=== PATIENT | female | born 1995 | race American Indian/Alaskan Native ===

== ENCOUNTER 2016-09-14 13:26 | Emergency (ER) | payer SELFPAY ==
[2016-09-14 13:39] VITALS: BP 113/66
--- NOTE | 2016-09-14 14:44 | Emergency Department Report ---
HPI - General Chief Complaint: Sore Throat Time Seen by Provider: 09/14/16 13:54 - HPI HPI: Patient reports that she has strep throat and migraine headache pain for 2-3 days. She said her boyfriend is also here with pain symptoms and she feels that she has strep. Reports pain to head and throat at 9 out of 10 and aching. Denies any nausea or vomiting. She reports that she did not take her temperatures documented fever. No tipp-nhx-tsyoste medication taken. Denies any drooling or shortness of breath. Denies any chest pain or back pain. Denies any neck pain or stiffness. Denies coughing.. ED Past Medical Hx - Past Medical History Previous Medical History?: Yes Hx Hypertension: No Hx Heart Attack/AMI: No Hx Congestive Heart Failure: No Hx Diabetes: No Hx Deep Vein Thrombosis: No Hx Renal Disease: No Hx Sickle Cell Disease: No Hx Seizures: No Hx Asthma: No Hx COPD: No Hx HIV: No Additional medical history: vaginal delivery 10-01-2015 - Surgical History Past Surgical History?: No - Family History Family history: hypertension - Social History Smoking Status: Current Some Day Smoker Substance Use Type: Non Opiate Pain - Medications Home Medications: Home Medications Medication Instructions Recorded Confirmed Last Taken Type Ondansetron [Zofran Odt] 4 mg PO TID #14 tab.rapdis 04/12/15 Unknown Rx Docusate Sodium [Colace] 100 mg PO BID PRN #60 capsule 10/03/15 Unknown Rx Ferrous Sulfate [Feosol 325 MG tab] 325 mg PO TID #90 tablet 10/03/15 Unknown Rx Vit-Fe Fumar-FA [ 1 each PO QDAY #30 tablet 10/03/15 Unknown Rx Vitamin] oxyCODONE /ACETAMINOPHEN [Percocet 1 tab PO Q6H PRN #20 tablet 10/03/15 Unknown Rx 5/325 mg] Ibuprofen [Motrin 600 MG tab] 600 mg PO Q6H PRN #15 tablet 09/14/16 Unknown Rx Penicillin Vk [Veetids TAB] 500 mg PO TID #60 tablet 09/14/16 Unknown Rx ED Review of Systems ROS: Stated complaint: SORE THROAT/MIGRAINE HEADACHE Other details as noted in HPI Comment: All other systems reviewed and negative Constitutional: chills. denies: weakness Eyes: denies: eye discharge ENT: throat pain. denies: ear pain, dental pain, congestion Respiratory: no symptoms reported Cardiovascular: denies: chest pain, palpitations, edema, syncope Gastrointestinal: denies: abdominal pain, nausea, vomiting Genitourinary: denies: urgency, dysuria, frequency, hematuria, discharge Musculoskeletal: denies: back pain, joint swelling, arthralgia, myalgia Skin: denies: rash Neurological: headache. denies: weakness, numbness, paresthesias, confusion, abnormal gait, vertigo Physical Exam - Physical Exam Vital Signs: Vital Signs 09/14/16 13:33 Temperature 99.2 F Pulse Rate 106 H Respiratory 20 Rate Blood Pressure 113/66 O2 Sat by Pulse 99 Oximetry Vital Signs 09/14/16 09/14/16 13:33 15:02 Temperature 99.2 F Pulse Rate 106 H Respiratory 20 18 Rate Blood Pressure 113/66 O2 Sat by Pulse 99 Oximetry Vital Signs 09/14/16 09/14/16 09/14/16 13:33 15:02 16:12 Temperature 99.2 F Pulse Rate 106 H 88 Respiratory 20 18 Rate Blood Pressure 113/66 O2 Sat by Pulse 99 Oximetry General: 21-year-old female well-nourished well-developed in no acute distress. Physical Exam: Head: Normocephalic atraumatic Mouth: Moist, Positive pharyngeal exudate and erythema. Uvula is midline and oral airway is patent. No facial swelling. No peritonsillar abscesses. Nose: Nl Mucosa Maxillary and frontal sinuses nontender to palpate. No drooling and time is normal Neck: Supple, no C-spine tenderness, no tracheal deviation. Nontender to palpate. Positive cervical adenopathy Ears: Bilateral TMs congested without erythema. Bilateral EAC without any redness swelling or drainage. Bilateral otitis nontender to palpate Abdomen: Soft, nontender to palpate in all quadrants, normal bowel sounds in all quadrant and negative CVA tenderness bilaterally. Neurological: GCS of 15, alert and oriented 3. Speech is clear and fluid. Normal gait. No motor or sensory deficit. Normal reflexes. No facial drooping. No pronator drift and negative Romberg. Eyes: Bilateral pupils equal and reactive to light, bilateral EOM intact. Bilateral sclera and conjunctiva without injection. Normal accommodation. No nystagmus Lungs: Clear to auscultate bilaterally no rhonchi wheezes or rales. Normal work of breathing extremity; No CCE. +2 pulses. No neurovascular compromise Cardiovascular: S1-S2, regular rate rhythm. No murmurs. Manual pulses at 88 Skin: clean Dry and intact no rash no lesions Psych: Normal mood and behavior ED Course Vital Signs 09/14/16 13:33 Temperature 99.2 F Pulse Rate 106 H Respiratory 20 Rate Blood Pressure 113/66 O2 Sat by Pulse 99 Oximetry Vital Signs 09/14/16 09/14/16 09/14/16 13:33 15:02 16:12 Temperature 99.2 F Pulse Rate 106 H 88 Respiratory 20 18 Rate Blood Pressure 113/66 O2 Sat by Pulse 99 Oximetry - Reevaluation(s) Reevaluation #1: 09/14/16 16:16 She received Motrin 800 mg when necessary emergency room and she will be treated with penicillin for strep rather than Bicillin injection. ED Medical Decision Making - Medical Decision Making Course: Significant appropriate in sore throat and chills. Based on Physical exam, patient has strep pharyngitis. She has fever, chills, enlarged lymph nodes, headache and erythema with exudate to the oropharynx. Given Motrin 800 mg by mouth emergency room for sore throat and fever. I discussed the patient that she has strep throat and gave her the option to be treated with Bicillin injection 1 in the ED for penicillin VK orally and she Was treated with Penicillin VK. She does understand the discharge diagnosis and treatment plan and patient discharged home with prescription for penicillin VK and Motrin. Critical care attestation.: If time is entered above; I have spent that time in minutes in the direct care of this critically ill patient, excluding procedure time. ED Disposition Clinical Impression: Exudative pharyngitis, Fever and chills Headache Qualifiers: Headache type: unspecified Headache chronicity pattern: acute headache Intractability: not intractable Qualified Code(s): R51 - Headache Disposition: DC-01 TO HOME OR SELFCARE Is pt being admited?: No Does the pt Need Aspirin: No Condition: Stable Instructions: Acute Headache (ED), Fever in Adults (ED), Strep Throat (ED) Additional Instructions: Take antibiotic as prescribed take Motrin as prescribed for fever and sore throat. Follow-up with your primary care physician in 4 days and if he do not have when he can follow-up at [facility]. Prescriptions: Ibuprofen [Motrin 600 MG tab] 600 mg PO Q6H PRN #15 tablet PRN Reason: FEVER AND SORE THROAT Penicillin Vk [Veetids TAB] 500 mg PO TID #60 tablet Referrals: PRIMARY CARE, [Primary Care Provider] - 09/18/[address] [facility] [Outside] - 09/18/16 Forms: Accompanied Note, Work/School Release Form(ED)
[2016-09-14] MEDS ORDERED: MOTRIN PO ONE (14:51)
== END 2016-09-14 16:36 | disposition home or self-care (01) ==
LOC: ED 13:26
DX: J02.9 Acute pharyngitis, unspecified (principal); R51 Headache; Z72.0 Tobacco use
CPT/HCPCS: 99282

== ENCOUNTER 2018-05-24 13:53 | Emergency (ER) | payer BC, MEDICAID ==
[2018-05-24 15:29] VITALS: BP 100/58
--- NOTE | 2018-05-24 15:38 | Emergency Department Report ---
Chief Complaint: Urogenital-Female Stated Complaint: STD CHECK Time Seen by Provider: 05/24/18 15:27 - HPI History of Present Illness: This is a 23 y.o female that presents with pelvic pain and vaginal bleeding. Patient is unsure of when symptoms started. LMP 05/02/18, A1. - Exam Vital Signs: Vital Signs 05/24/18 15:28 Temperature 99.0 F Pulse Rate 85 Respiratory 16 Rate Blood Pressure 100/58 [Right] O2 Sat by Pulse 100 Oximetry MSE screening note: Focused history and physical exam performed. Due to findings the following was ordered: labs Fast track for further evaluation ED Disposition for MSE Condition: Stable
[2018-05-24 16:07] LABS: Basophils % (Auto) 0.6 % (0.0-1.8); Eosinophils % (Auto) 0.3 % (0.0-4.3); Hematocrit 40.4 % (30.3-42.9); Hemoglobin 14.1 gm/dl (10.1-14.3); Lymphocytes % (Auto) 34.4 % (13.4-35.0); Mean Corpuscular HGB Conc 35 % (30-34); Mean Corpuscular Volume 93 fl (79-97); Monocytes # (Auto) 0.4 K/mm3 (0.0-0.8); Monocytes % (Auto) 6.4 % (0.0-7.3); Platelet Count 268 K/mm3 (140-440); Red Blood Count 4.35 M/mm3 (3.65-5.03)
[2018-05-24 16:40] LABS: Bacteria,Urine 4+ /HPF (Negative); Bilirubin,Urine NEG (Negative); Blood,Urine MOD (Negative); Color,Urine Amber (Yellow); Mucus,Urine 3+ /HPF; Protein,Urine <15 mg/dL mg/dL (Negative)
== END 2018-05-24 18:31 | disposition left against medical advice (07) ==
LOC: ED 13:53
DX: R10.2 Pelvic and perineal pain (principal); Z53.21 Procedure and treatment not carried out due to patient leaving prior to being seen by health care provider
CPT/HCPCS: 36415; 81001; 84703; 85025

== ENCOUNTER 2018-05-26 15:53 | Emergency (ER) | payer BC, MEDICAID ==
--- NOTE | 2018-05-26 16:07 | Emergency Department Report ---
Blank Doc - Documentation Documentation: This is a 23-year-old female that presents with STD check with pelvic pain. P atient denies any vaginal discharge. Stated has abnormal menstrual cycle after depo. This initial assessment/diagnostic orders/clinical plan/treatment(s) is/are subject to change based on patient's health status, clinical progression and re- assessment by fellow clinical providers in the ED. Further treatment and workup at subsequent clinical providers discretion. Patient/guardians urged not to elope from the ED as their condition may be serious if not clinically assessed and managed. Initial orders include: 1- Patient sent to [facility] for further evaluation and treatment 2- UA
[2018-05-26 16:49] LABS: Basophils % (Auto) 0.6 % (0.0-1.8); Eosinophils % (Auto) 0.6 % (0.0-4.3); Hematocrit 40.9 % (30.3-42.9); Hemoglobin 14.2 gm/dl (10.1-14.3); Lymphocytes % (Auto) 42.3 % (13.4-35.0); Mean Corpuscular HGB Conc 35 % (30-34); Mean Corpuscular Volume 93 fl (79-97); Monocytes # (Auto) 0.3 K/mm3 (0.0-0.8); Monocytes % (Auto) 6.3 % (0.0-7.3); Platelet Count 275 K/mm3 (140-440); Red Cell Distribution Width 12.9 % (13.2-15.2)
[2018-05-26 17:01] LABS: BUN/Creatinine Ratio 20; Blood Urea Nitrogen 14 mg/dL (7-17); Calcium 9.1 mg/dL (8.4-10.2); Hemolysis Index 2
[2018-05-26 17:31] LABS: Bacteria,Urine 3+ /HPF (Negative); Bilirubin,Urine NEG (Negative); Blood,Urine MOD (Negative); Color,Urine Amber (Yellow); Mucus,Urine 3+ /HPF
[2018-05-26] MEDS ORDERED: ZITHROMAX PO ONE (17:35)
[2018-05-26] MEDS ORDERED: ROCEPHIN IM ONE (17:35)
[2018-05-26] MEDS ORDERED: XYLOCAINE 1% MPF 5 mL INFILTRATI ONE (17:35)
[2018-05-26] MEDS ORDERED: MACROBID PO ONE (17:45)
--- NOTE | 2018-05-26 17:50 | Emergency Department Report ---
ED Female HPI - General Chief complaint: Abdominal Pain Stated complaint: STD CHECK/VAGINAL BLEEDING/ABD PAIN Time Seen by Provider: 05/26/18 16:05 Source: patient Mode of arrival: Ambulatory Limitations: No Limitations - History of Present Illness Initial comments: 23-year-old female withno significant past medical history presents complaining and pelvic pain and spotting in between her periods. Patient states that she recently reunited with her boyfriend who has penile discharge and dysuria. She also complains of frequent urination and discomfort with urination. She denies fever, nausea, vomiting, or flank pain. - Related Data Previous Rx's Medication Instructions Recorded Last Taken Type Ondansetron [Zofran Odt] 4 mg PO TID #14 tab.rapdis 04/12/15 Unknown Rx Docusate Sodium [Colace] 100 mg PO BID PRN #60 capsule 10/03/15 Unknown Rx Ferrous Sulfate [Feosol 325 MG tab] 325 mg PO TID #90 tablet 10/03/15 Unknown Rx Vit-Fe Fumar-FA [ 1 each PO QDAY #30 tablet 10/03/15 Unknown Rx Vitamin] oxyCODONE /ACETAMINOPHEN [Percocet 1 tab PO Q6H PRN #20 tablet 10/03/15 Unknown Rx 5/325 mg] Ibuprofen [Motrin 600 MG tab] 600 mg PO Q6H PRN #15 tablet 09/14/16 Unknown Rx Penicillin Vk [Veetids TAB] 500 mg PO TID #60 tablet 09/14/16 Unknown Rx Nitrofurantoin [place]/M-Cryst 100 mg PO Q12HR #10 capsule 05/26/18 Unknown Rx [Macrobid CAP] Allergies Allergy/AdvReac Type Severity Reaction Status Date / Time No Known Allergies Allergy Verified 05/26/18 15:55 ED Review of Systems ROS: Stated complaint: STD CHECK/VAGINAL BLEEDING/ABD PAIN Other details as noted in HPI Comment: All other systems reviewed and negative ED Past Medical Hx - Past Medical History Hx Hypertension: No Hx Heart Attack/AMI: No Hx Congestive Heart Failure: No Hx Diabetes: No Hx Deep Vein Thrombosis: No Hx Renal Disease: No Hx Sickle Cell Disease: No Hx Seizures: No Hx Asthma: No Hx COPD: No Hx HIV: No Additional medical history: vaginal delivery 10-01-2015 - Social History Smoking Status: Current Every Day Smoker Substance Use Type: Alcohol, Marijuana - Medications Home Medications: Home Medications Medication Instructions Recorded Confirmed Last Taken Type Ondansetron [Zofran Odt] 4 mg PO TID #14 tab.rapdis 04/12/15 Unknown Rx Docusate Sodium [Colace] 100 mg PO BID PRN #60 capsule 10/03/15 Unknown Rx Ferrous Sulfate [Feosol 325 MG tab] 325 mg PO TID #90 tablet 10/03/15 Unknown Rx Vit-Fe Fumar-FA [ 1 each PO QDAY #30 tablet 10/03/15 Unknown Rx Vitamin] oxyCODONE /ACETAMINOPHEN [Percocet 1 tab PO Q6H PRN #20 tablet 10/03/15 Unknown Rx 5/325 mg] Ibuprofen [Motrin 600 MG tab] 600 mg PO Q6H PRN #15 tablet 09/14/16 Unknown Rx Penicillin Vk [Veetids TAB] 500 mg PO TID #60 tablet 09/14/16 Unknown Rx Nitrofurantoin [place]/M-Cryst 100 mg PO Q12HR #10 capsule 05/26/18 Unknown Rx [Macrobid CAP] ED Physical Exam - General Limitations: No Limitations - Other Other exam information: General: No limitations, patient is alert in no acute distress Head exam: Atraumatic, normocephalic Eyes exam: Normal appearance ENT: Moist mucous membrane Neck exam: Normal inspection, full range of motion, no meningismus nontender Respiratory exam: Clear to auscultation bilateral, no wheezes, rales, crackles Cardiovascular: Normal rate and rhythm, normal heart sounds Abdomen: Soft, nondistended, and nontender, with normal bowel sounds, no rebound, or guarding : No external lesions, clear vaginal discharge. Minimal blood at the cervical os without cervical lesions. No CMT or adnexal tenderness. Extremity: Full range of motion normal inspection no deformity Back: Normal Inspection, full range of motion, no tenderness Neurologic: Alert, oriented x3, cranial nerves intact, no motor or sensory deficit Psychiatric: normal affect, normal mood Skin: Warm, dry, intact ED Course Vital Signs 05/26/18 05/26/18 16:05 17:27 Temperature 98.6 F 99.3 F Pulse Rate 88 72 Respiratory 16 18 Rate Blood Pressure 116/64 Blood Pressure 103/63 [Right] O2 Sat by Pulse 100 98 Oximetry ED Medical Decision Making - Lab Data Result diagrams: 05/26/18 16:37 05/26/18 16:37 Lab Results 05/26/18 05/26/18 05/26/18 Range/Units 16:11 16:37 16:37 WBC 4.8 (4.5-11.0) K/mm3 RBC 4.40 (3.65-5.03) M/mm3 Hgb 14.2 (10.1-14.3) gm/dl Hct 40.9 (30.3-42.9) % MCV 93 (79-97) fl MCH 32 (28-32) pg MCHC 35 H (30-34) % RDW 12.9 L (13.2-15.2) % Plt Count 275 (140-440) K/mm3 Lymph % (Auto) 42.3 H (13.4-35.0) % [place] % (Auto) 6.3 (0.0-7.3) % Eos % (Auto) 0.6 (0.0-4.3) % Baso % (Auto) 0.6 (0.0-1.8) % Lymph # 2.0 (1.2-5.4) K/mm3 [place] # 0.3 (0.0-0.8) K/mm3 Eos # 0.0 (0.0-0.4) K/mm3 Baso # 0.0 (0.0-0.1) K/mm3 Seg Neutrophils % 50.2 (40.0-70.0) % Seg Neutrophils # 2.4 (1.8-7.7) K/mm3 Sodium 142 (137-145) mmol/L Potassium 3.5 L (3.6-5.0) mmol/L Chloride 102.9 (98-107) mmol/L Carbon Dioxide 25 (22-30) mmol/L Anion Gap 18 mmol/L BUN 14 (7-17) mg/dL Creatinine 0.7 (0.7-1.2) mg/dL Estimated GFR > 60 ml/min BUN/Creatinine Ratio 20 % Glucose 87 (65-100) mg/dL Calcium 9.1 (8.4-10.2) mg/dL HCG, Qual Negative (Negative) Urine Color (Yellow) Urine Turbidity (Clear) Urine pH (5.0-7.0) Ur Specific [place] (1.003-1.030) Urine Protein (Negative) mg/dL Urine Glucose (UA) (Negative) mg/dL Urine Ketones (Negative) mg/dL Urine Blood (Negative) Urine Nitrite (Negative) Urine Bilirubin (Negative) Urine Urobilinogen (<2.0) mg/dL Ur Leukocyte Esterase (Negative) Urine WBC (Auto) (0.0-6.0) /HPF Urine RBC (Auto) (0.0-6.0) /HPF U Epithel Cells (Auto) (0-13.0) /HPF Urine Bacteria (Auto) (Negative) /HPF Urine Mucus /HPF 05/26/18 Range/Units 17:08 WBC (4.5-11.0) K/mm3 RBC (3.65-5.03) M/mm3 Hgb (10.1-14.3) gm/dl Hct (30.3-42.9) % MCV (79-97) fl MCH (28-32) pg MCHC (30-34) % RDW (13.2-15.2) % Plt Count (140-440) K/mm3 Lymph % (Auto) (13.4-35.0) % [place] % (Auto) (0.0-7.3) % Eos % (Auto) (0.0-4.3) % Baso % (Auto) (0.0-1.8) % Lymph # (1.2-5.4) K/mm3 [place] # (0.0-0.8) K/mm3 Eos # (0.0-0.4) K/mm3 Baso # (0.0-0.1) K/mm3 Seg Neutrophils % (40.0-70.0) % Seg Neutrophils # (1.8-7.7) K/mm3 Sodium (137-145) mmol/L Potassium (3.6-5.0) mmol/L Chloride (98-107) mmol/L Carbon Dioxide (22-30) mmol/L Anion Gap mmol/L BUN (7-17) mg/dL Creatinine (0.7-1.2) mg/dL Estimated GFR ml/min BUN/Creatinine Ratio % Glucose (65-100) mg/dL Calcium (8.4-10.2) mg/dL HCG, Qual (Negative) Urine Color Ly (Yellow) Urine Turbidity Slightly-cloudy (Clear) Urine pH 5.0 (5.0-7.0) Ur Specific [place] 1.029 (1.003-1.030) Urine Protein 30 mg/dl (Negative) mg/dL Urine Glucose (UA) Neg (Negative) mg/dL Urine Ketones Neg (Negative) mg/dL Urine Blood Mod (Negative) Urine Nitrite Pos (Negative) Urine Bilirubin Neg (Negative) Urine Urobilinogen 4.0 (<2.0) mg/dL Ur Leukocyte Esterase Mod (Negative) Urine WBC (Auto) 23.0 H (0.0-6.0) /HPF Urine RBC (Auto) 4.0 (0.0-6.0) /HPF U Epithel Cells (Auto) 13.0 (0-13.0) /HPF Urine Bacteria (Auto) 3+ (Negative) /HPF Urine Mucus 3+ /HPF wet prep: >20 clue cells, no yeast or trich - Medical Decision Making Patient provided Rocephin and azithromycin here since the gonorrhea and chlamyd ia since results will be pending. Patient also provided macrobid for UTI which will be continued. Flagyl for BV. No signs of or anemia. INSIDE TECHNICAL SALES REPRESENTATIVE follow will be encouraged - Differential Diagnosis UTI, vaginitis, cervicitis, PID, ectopic, DUB Critical Care Time: No Critical care attestation.: If time is entered above; I have spent that time in minutes in the direct care of this critically ill patient, excluding procedure time. ED Disposition Clinical Impression: UTI (urinary tract infection), Possible exposure to STD, Bacterial vaginosis Disposition: - TO HOME OR SELFCARE Is pt being admited?: No Does the pt Need Aspirin: No Condition: Stable Instructions: Sexually Transmitted Diseases (ED), Urinary Tract Infection in Women (ED), Bacterial Vaginosis (ED) Additional Instructions: Take the medication as prescribed. Follow up with your doctor or the clinic/doctor provided. Return if symptoms worsen as indicated by your discharge instructions. Your gonorrhea and chlamydia tests are pending and take approximately 3-4 days result. You may obtain results in medical records with a photo ID. You may also obtain results through the follow-up doctor office via medical record request. Prescriptions: Nitrofurantoin [place]/M-Cryst [Macrobid CAP] 100 mg PO Q12HR #10 capsule Referrals: TITO RIZO MD [Staff Physician] - 3-5 Days (INSIDE TECHNICAL SALES REPRESENTATIVE doctor ) [facility] [Provider Group] - 3-5 Days Forms: STI Treatment and Prevention Time of Disposition: 18:03
[2018-05-26] MEDS ORDERED: FLAGYL PO ONE (18:02)
[2018-05-26 18:19] VITALS: BP 110/60
== END 2018-05-26 18:18 | disposition home or self-care (01) ==
LOC: ED 15:53
DX: N39.0 Urinary tract infection, site not specified (principal); N76.0 Acute vaginitis; B96.89 Other specified bacterial agents as the cause of diseases classified elsewhere; Z20.2 Contact with and (suspected) exposure to infections with a predominantly sexual mode of transmission
CPT/HCPCS: 36415; 80048; 81001; 84703; 85025; 87210; 87591; 96372; 99284; J0696

== ENCOUNTER 2019-02-11 22:14 | Emergency (ER) | payer BC, MEDICAID ==
[2019-02-11 22:27] VITALS: BP 120/74
[2019-02-11] MEDS ORDERED: SODIUM CHLORIDE 0.9% 1000 ML 1,000 ML IV ONE ×2 (23:55)
[2019-02-11] MEDS ORDERED: METOCLOPRAMIDE 10 MG/2 ML INJ IV ONE (23:55)
--- NOTE | 2019-02-12 00:04 | Emergency Department Report ---
HPI - General Chief Complaint: GI Bleed Time Seen by Provider: 02/11/19 23:37 - HPI HPI: Room 39 The patient is a 23-year-old female presenting with a chief complaint of nausea and vomiting. The patient states she is approximately 8 weeks gestational age and for the past 6 weeks she's had intractable nausea and vomiting. The patient states for the past week she's been unable to keep anything by mouth down. Patient denies fever abdominal pain or vaginal bleeding. Patient complains of chest pain with vomiting. Patient denies dysuria or hematuria Location: [See above] Duration: [See above] Quality: [See above] Severity: [See above] Timing: [See above] Context: [See above] Modifying factors: [See above] Associated signs and symptoms: [see above] ED Past Medical Hx - Past Medical History Additional medical history: vaginal delivery 10-01-2015 - Surgical History Past Surgical History?: No Hx Breast Surgery: Yes (breast reduction) - Family History Family history: no significant - Social History Smoking Status: Current Every Day Smoker Substance Use Type: None (denies illicit drug use) - Medications Home Medications: Home Medications Medication Instructions Recorded Confirmed Last Taken Type Ondansetron [Zofran Odt] 4 mg PO TID #14 tab.rapdis 04/12/15 Unknown Rx Docusate Sodium [Colace] 100 mg PO BID PRN #60 capsule 10/03/15 Unknown Rx Ferrous Sulfate [Feosol 325 MG tab] 325 mg PO TID #90 tablet 10/03/15 Unknown Rx Vit-Fe Fumar-FA [ 1 each PO QDAY #30 tablet 10/03/15 Unknown Rx Vitamin] oxyCODONE /ACETAMINOPHEN [Percocet 1 tab PO Q6H PRN #20 tablet 10/03/15 Unknown Rx 5/325 mg] Ibuprofen [Motrin 600 MG tab] 600 mg PO Q6H PRN #15 tablet 09/14/16 Unknown Rx Penicillin Vk [Veetids TAB] 500 mg PO TID #60 tablet 09/14/16 Unknown Rx Nitrofurantoin [place]/M-Cryst 100 mg PO Q12HR #10 capsule 05/26/18 Unknown Rx [Macrobid CAP] metroNIDAZOLE [Flagyl] 500 mg PO Q12HR #14 tab 05/26/18 Unknown Rx Metoclopramide [Reglan] 10 mg PO Q6H PRN #30 tablet 11/27/19 Unknown Rx ED Review of Systems ROS: Stated complaint: 10 WEEKS PREG/VOMITTING BLOOD Other details as noted in HPI Constitutional: denies: fever Eyes: denies: eye pain ENT: denies: throat pain Respiratory: no symptoms reported Cardiovascular: denies: chest pain Endocrine: no symptoms reported Gastrointestinal: nausea, vomiting. denies: abdominal pain Genitourinary: denies: abnormal menses Musculoskeletal: denies: back pain Physical Exam - Physical Exam Vital Signs: Vital Signs 02/11/19 22:25 Temperature 98.1 F Pulse Rate 95 H Respiratory 18 Rate Blood Pressure 120/74 O2 Sat by Pulse 98 Oximetry Physical Exam: GENERAL: The patient is well-developed well-nourished female lying on stretcher be in acute distress. [] HEENT: Normocephalic. Atraumatic. Extraocular motions are intact. Patient has moist mucous membranes. NECK: Supple. Trachea midline CHEST/LUNGS: Clear to auscultation. There is no respiratory distress noted. HEART/CARDIOVASCULAR: Regular. There is no tachycardia. There is no gallop rub or murmur. ABDOMEN: Abdomen is soft, nontender. Patient has normal bowel sounds. There is no abdominal distention. SKIN: There is no rash. There is no edema. There is no diaphoresis. NEURO: The patient is awake, alert, and oriented. The patient is cooperative. The patient has normal speech MUSCULOSKELETAL: There is no evidence of acute injury. ED Course Vital Signs 02/11/19 22:25 Temperature 98.1 F Pulse Rate 95 H Respiratory 18 Rate Blood Pressure 120/74 O2 Sat by Pulse 98 Oximetry - Reevaluation(s) Reevaluation #1: 02/12/19 02:50 Patient tolerating po ED Medical Decision Making - Lab Data Result diagrams: 02/11/19 23:58 02/11/19 23:58 - Differential Diagnosis hyperemesis gravidarum, UTI Critical care attestation.: If time is entered above; I have spent that time in minutes in the direct care of this critically ill patient, excluding procedure time. ED Disposition Clinical Impression: Hyperemesis gravidarum Disposition: DC-01 TO HOME OR SELFCARE Is pt being admited?: No Does the pt Need Aspirin: No Condition: Stable Instructions: Hyperemesis Gravidarum (ED) Additional Instructions: Return to the emergency department should you develop worsening symptoms, inability to tolerate food or liquids, high fever or any other concerns Prescriptions: Metoclopramide [Reglan] 10 mg PO Q6H PRN #30 tablet PRN Reason: Nausea Referrals: [facility] [Provider Group] - 3-5 Days Forms: Accompanied Note Time of Disposition: 03:07
[2019-02-12 00:09] LABS: Basophils # (Auto) 0.1 K/mm3 (0.0-0.1); Basophils % (Auto) 0.5 % (0.0-1.8); Eosinophils % (Auto) 0.1 % (0.0-4.3); Hematocrit 41.9 % (30.3-42.9); Hemoglobin 14.4 gm/dl (10.1-14.3); Lymphocytes # (Auto) 2.2 K/mm3 (1.2-5.4); Lymphocytes % (Auto) 19.3 % (13.4-35.0); Mean Corpuscular HGB Conc 34 % (30-34); Mean Corpuscular Volume 92 fl (79-97); Monocytes # (Auto) 0.7 K/mm3 (0.0-0.8); Monocytes % (Auto) 5.9 % (0.0-7.3); Platelet Count 282 K/mm3 (140-440); Red Blood Count 4.58 M/mm3 (3.65-5.03); Red Cell Distribution Width 12.4 % (13.2-15.2)
[2019-02-12 00:32] LABS: Alanine Aminotransferase 27 units/L (7-56); Albumin 4.4 g/dL (3.9-5); BUN/Creatinine Ratio 17; Blood Urea Nitrogen 12 mg/dL (7-17); Calcium 9.4 mg/dL (8.4-10.2); Hemolysis Index 7
[2019-02-12 03:03] LABS: Bilirubin,Urine NEG (Negative); Blood,Urine NEG (Negative); Color,Urine Yellow (Yellow); Mucus,Urine 3+ /HPF
== END 2019-02-12 03:10 | disposition home or self-care (01) ==
LOC: ED 22:14
DX: O21.0 Mild hyperemesis gravidarum (principal); F17.200 Nicotine dependence, unspecified, uncomplicated; Z3A.08 8 weeks gestation of pregnancy; Z98.890 Other specified postprocedural states; Z79.1 Long term (current) use of non-steroidal anti-inflammatories (NSAID); Z79.4 Long term (current) use of insulin; Z79.899 Other long term (current) drug therapy
CPT/HCPCS: 36415; 80053; 81001; 85025; 96361; 96374; 99283; J2765; J7030

== ENCOUNTER 2019-09-03 23:27 | Outpatient (CLI) | payer BC, MEDICAID ==
[2019-09-03 23:45] VITALS: BP 123/74
[2019-09-04] MEDS ORDERED: LACTATED RINGERS 1,000 ML IV ONE (00:24)
--- NOTE | 2019-09-04 01:57 | Ultrasound Report ---
ULTRASOUND OBSTETRIC LIMITED ULTRASOUND BIOPHYSICAL PROFILE INDICATION / CLINICAL INFORMATION: Bleeding. COMPARISON: None available. FINDINGS: BREATHING MOVEMENT = 2 GROSS BODY MOVEMENT = 2 TONE = 2 QUALITATIVE AMNIOTIC FLUID VOLUME = 2 TOTAL BIOPHYSICAL SCORE = 8/8 AMNIOTIC FLUID INDEX (cm) = normal PRESENTATION: Cephalic. HEART RATE (beats per minute): 149 ADDITIONAL FINDINGS: Placenta anterior left lateral, grade 2 without previa or placental abruption IMPRESSION: 1. Biophysical Score = 8/8 Signer Name: Eric Teague MD Signed: 09/04/2019 1:52 AM Workstation Name: [id number]
== END 2019-09-04 01:45 | disposition home or self-care (01) ==
LOC: TRG 23:27 → APU 23:34 → TRG 09-04 01:45
PROVIDERS: ATTEND Obstetrics & Gynecology
DX: O46.93 Antepartum hemorrhage, unspecified, third trimester (principal); O21.2 Late vomiting of pregnancy; Z3A.37 37 weeks gestation of pregnancy
CPT/HCPCS: 59025; 76815; 76819; 96360; J7120